=== PATIENT | male | born 1945 | race Caucasian/White ===

== ENCOUNTER 2018-05-14 06:19 | Emergency (ER) | payer OTHER ==
[~2018-05-14] VITALS: Ht 182.9 cm; Wt 106.1 kg
[~2018-05-14 06:19] MED LIST: AMLO5TAB4 PO; LISI-170 PO
[2018-05-14 06:54] LABS: CULTURE INDICATED? YES; MICROSCOPIC INDICATED
[2018-05-14 07:00] LABS: BASOPHILS # (AUTO) 0.12 x10^3/uL (0-0.1); BASOPHILS % (AUTO) 2 % (0-1); EOSINOPHILS # (AUTO) 0.31 x10^3/uL (0-0.4); EOSINOPHILS % (AUTO) 4 % (1-7); LYMPHOCYTES # (AUTO) 1.73 x10^3/uL (1-3.4); LYMPHOCYTES % (AUTO) 22 % (22-44); MD NO; MEAN CORPUSCULAR HEMOGLOBIN 29.4 pg (27.5-34.5); MEAN PLATELET VOLUME 8.5 fL (7.4-10.4); MONOCYTES % (AUTO) 9 % (2-9); NEUTROPHILS % (AUTO) 64 % (42-75); PLATELET COUNT 219 x10^3/uL (130-400); RED BLOOD COUNT 4.91 x10^6/uL (4.38-5.82); RED CELL DISTRIBUTION WIDTH 13.5 % (9.4-14.8)
[2018-05-14 07:12] LABS: ALBUMIN 3.4 g/dL (3.4-5.0); ANION GAP 8 mmol/L (5-15); CALCIUM 8.4 mg/dL (8.5-10.1); CHLORIDE 108 mmol/L (98-107); CREATININE 1.48 mg/dL (0.7-1.3)
[2018-05-14 08:24] VITALS: BP 125/76
[2018-05-14] MEDS ORDERED: CEFTRIAXONE 1,000 MG ONE (08:30)
[2018-05-14] MEDS ORDERED: LIDOCAINE-MPF 2%, 2ML ONE (08:30)
[2018-05-14] MEDS ORDERED: CEFTRIAXONE 1,000 MG IM ONE (09:00)
== END 2018-05-14 09:42 | disposition home or self-care (01) ==
LOC: ED 07:45
DX: N30.00 Acute cystitis without hematuria (principal)
CPT/HCPCS: 36415; 80048; 81001; 82040; 85025; 87077; 87086; 87186; 96372; 99284; J0696

== ENCOUNTER 2019-11-17 14:52 | Emergency (ER) | payer OTHER ==
[~2019-11-17] VITALS: Ht 182.9 cm; Wt 105.0 kg
[2019-11-17 16:47] VITALS: BP 157/85
--- NOTE | 2019-11-17 16:47 | NUR ---
C-collar removed, pt amb steady gait. D/C instructions provided.
== END 2019-11-17 17:53 | disposition home or self-care (01) ==
LOC: ED 16:42
DX: S16.1XXA Strain of muscle, fascia and tendon at neck level, initial encounter (principal); V49.09XA Driver injured in collision with other motor vehicles in nontraffic accident, initial encounter; Y93.89 Activity, other specified; Y92.410 Unspecified street and highway as the place of occurrence of the external cause; Y99.8 Other external cause status
CPT/HCPCS: 72125; 99284